=== PATIENT | female | born 1945 | race Caucasian/White ===

== ENCOUNTER 2018-03-28 20:10 | Inpatient (IN) | payer MEDICARE | END 2018-04-02 13:35 | LOC: ED HOLD 22:59 → ER 20:10 → PCU 3S 03-29 16:48 | DX: I21.A1 Myocardial infarction type 2 (principal); I50.33 Acute on chronic diastolic (congestive) heart failure; I42.9 Cardiomyopathy, unspecified; G93.40 Encephalopathy, unspecified ==